=== PATIENT | male | born 1990 | race Caucasian/White ===

== ENCOUNTER 2023-04-29 09:56 | Emergency (ER) | payer SELFPAY ==
[2023-04-29 10:50] LABS: APPEARANCE,URINE CLOUDY (Clear); BILIRUBIN,URINE NEGATIVE (Negative); COLOR,URINE YELLOW (Yellow); GLUCOSE,URINE NEGATIVE (Negative); KETONES,URINE NEGATIVE (Negative); LEUKOCYTE ESTERASE,URINE NEGATIVE (Negative); NITRITE,URINE NEGATIVE (Negative); OCCULT BLOOD,URINE 3+ (Negative); PROTEIN,URINE 1+ (Negative); UROBILINOGEN,URINE 0.2 (0.2-1.0)
[2023-04-29 11:29] LABS: EPITHELIAL CELLS,URINE 0-5 /hpf (0-5); RBC,URINE 75-100 /hpf (0-5); WBC,URINE 0-5 /hpf (0-5)
[2023-04-29 11:30] LABS: BACTERIA,URINE FEW /hpf (FEW); MUCUS,URINE FEW /hpf (FEW)
[2023-04-29 11:37] LABS: BASOPHILS ABSOLUTE AUTO 0.1 K/mm3 (0.0-0.2); BASOPHILS PERCENT AUTO 0.4 % (0.0-1.0); EOSINOPHILS PERCENT AUTO 0.3 % (0.0-6.0); HEMATOCRIT 44.4 % (42.0-52.0); HEMOGLOBIN 14.9 gm/dl (14.0-18.0); IMMATURE GRAN ABSOLUTE AUTO 0.05 K/mm3 (0.00-0.05); IMMATURE GRAN PERCENT AUTO 0.4 % (0.0-0.4); LYMPHOCYTES ABSOLUTE AUTO 2.3 K/mm3 (1.0-4.8); LYMPHOCYTES PERCENT AUTO 17.4 % (24.0-44.0); MEAN CORPUSCULAR HEMOGLOBIN 30.2 pg (28.0-32.0); MEAN CORPUSCULAR HGB CONC 33.6 g/dl (32.0-36.0); MEAN CORPUSCULAR VOLUME 89.9 fl (83.0-99.0); MEAN PLATELET VOLUME 9.9 fl (9.4-12.4); MONOCYTES ABSOLUTE AUTO 1.3 K/mm3 (0.0-0.8); MONOCYTES PERCENT AUTO 9.4 % (0.0-8.0); NEUTROPHILS ABSOLUTE AUTO 9.7 K/mm3 (1.8-7.7); NEUTROPHILS PERCENT AUTO 72.1 % (41.0-71.0); PLATELET COUNT,PLT 245 K/mm3 (150-400); RED BLOOD CELL COUNT 4.94 M/mm3 (4.52-5.90); WHITE BLOOD CELL COUNT,WBC 13.47 K/mm3 (3.9-11.3)
[2023-04-29 12:02] LABS: A/G RATIO 1.2 (1-2); ALANINE AMINOTRANSFERASE,ALT 28 U/L (16-63); ALKALINE PHOSPHATASE 96 U/L (46-116); ANION GAP 12.3 (5-15); ASPARTATE AMNIOTRANSFERASE,AST 22 U/L (15-37); BILIRUBIN TOTAL 0.4 mg/dL (0.2-1.0); BLOOD UREA NITROGEN,BUN 12 mg/dL (7-18); BUN/CREATININE RATIO 10.9 (14-18); C-REACTIVE PROTEIN <0.2 mg/dL (<1.0); CALCIUM 9.3 mg/dL (8.5-10.1); CARBON DIOXIDE,CO2 28 mEq/L (21-32); CHLORIDE,CL 106 mEq/L (98-107); CREATININE 1.1 mg/dL (0.7-1.3); EST CRCL DRUG DOSING (CG) 66.92 mL/min; ESTIMATED GFR 90 mL/min (>60); GLUCOSE RANDOM 101 mg/dL (70-99); POTASSIUM,K 4.3 mEq/L (3.5-5.1); PROTEIN TOTAL,TP 7.4 g/dl (6.4-8.2); SODIUM,NA 142 mEq/L (136-145)
[2023-04-29 16:36] LABS: C. TRACHOMATIS BY PCR NOT DETECTED; N. GONORRHOEAE BY PCR NOT DETECTED
== END 2023-04-29 14:10 | disposition home or self-care (01) ==
LOC: JD.ED 09:56
DX: N13.2 Hydronephrosis with renal and ureteral calculous obstruction (principal); M89.9 Disorder of bone, unspecified; F17.210 Nicotine dependence, cigarettes, uncomplicated
CPT/HCPCS: 36415; 74176; 74176-26; 80053; 81001; 85025; 86140; 87491; 87591; 99284